=== PATIENT | male | born 1960 | race Hispanic/Latino ===

== ENCOUNTER 2018-07-06 15:42 | Emergency (ER) | payer OTHER ==
[2018-07-06] MEDS ORDERED: ASPIRIN 325 MG TABLET ONE (16:03)
[2018-07-06] MEDS ORDERED: NITROGLYCERIN 1GM/1 INCH PACKET TD ONE (16:04)
[2018-07-06 16:11] LABS: BASOPHILS % (AUTO) 0.2 % (0.0-5.0); EOSINOPHILS % (AUTO) 0.1 % (0.0-8.0); LYMPHOCYTES % (AUTO) 7.1 % (21.0-51.0); MEAN CORPUSCULAR HGB CONC 34.3 g/dL (32.0-36.0); MEAN CORPUSCULAR VOLUME 87.5 fL (79-99); MONOCYTES % (AUTO) 8.5 % (3.0-13.0); NEUTROPHILS % (AUTO) 84.1 % (40.0-77.0); PLATELET COUNT (AUTO) 195 K/uL (130-400); RED BLOOD CELL COUNT(AUTO) 5.25 MIL/uL (4.50-6.20); RED CELL DISTRIBUTION WIDTH 14.2 % (11.0-15.5); WHITE BLOOD COUNT (AUTO) 19.9 K/uL (4.8-10.8)
[2018-07-06 16:21] LABS: POTASSIUM 4.2 mmol/L (3.5-5.1)
[2018-07-06 16:25] LABS: ALBUMIN 4.2 g/dL (3.5-5.0); BILIRUBIN,TOTAL 1.1 mg/dL (0.2-1.0); TOTAL PROTEIN, SERUM 7.6 g/dL (6.0-8.3)
[2018-07-06] MEDS ORDERED: KETOROLAC TROMETHAMINE 30MG/ML ONE (16:36)
== END 2018-07-06 20:11 | disposition home or self-care (01) ==
LOC: EDH 15:42
DX: R11.10 Vomiting, unspecified (principal); R07.89 Other chest pain; Z72.0 Tobacco use
CPT/HCPCS: 36415; 71045; 80053; 84484 ×2; 85025; 85651; 86140; 93005 ×2; 96361; 96374; 99284; G0480; J1885